=== PATIENT | male | born 1960 | race Caucasian/White ===

== ENCOUNTER → 2020-07-16 | Outpatient (CLI) | payer OTHER ==
[~2020-07-16] MED LIST: AMLO5TAB4 PO; CHOL10003 PO
[2020-07-16 16:24] LABS: BASOPHILS % (AUTO) 1 % (0-1); EOSINOPHILS % (AUTO) 1 % (1-7); LYMPHOCYTES % (AUTO) 28 % (22-44); MEAN CORPUSCULAR HEMOGLOBIN 31.8 pg (27.5-34.5); MEAN CORPUSCULAR HGB CONC 34.3 g/dL (33.2-36.2); MEAN PLATELET VOLUME 8.5 fL (7.4-10.4); MONOCYTES % (AUTO) 7 % (2-9); NEUTROPHILS % (AUTO) 63 % (42-75); PLATELET COUNT 321 x10^3/uL (130-400); RED BLOOD COUNT 4.54 x10^6/uL (4.38-5.82); RED CELL DISTRIBUTION WIDTH 12.9 % (9.4-14.8)
[2020-07-16 16:26] LABS: MD NO
[2020-07-16 16:27] LABS: INTERNATIONAL NORMALIZED RATIO 0.94 (0.93-1.1); PROTHROMBIN TIME 10.1 Seconds (9.6-11.5)
[2020-07-16 16:29] LABS: ANION GAP 4 mmol/L (5-15); CALCIUM 9.3 mg/dL (8.5-10.1); CHLORIDE 106 mmol/L (98-107); CREATININE 1.07 mg/dL (0.7-1.3)
== END | disposition home or self-care (01) ==
LOC: STAR 14:59
PROVIDERS: ATTEND Neurological Surgery
DX: Z01.818 Encounter for other preprocedural examination (principal); M48.061 Spinal stenosis, lumbar region without neurogenic claudication; Z20.822 Contact with and (suspected) exposure to COVID-19
CPT/HCPCS: 36415; 71046; 80048; 85025; 85610; 85730; 93005; U0003; U0005

== ENCOUNTER 2020-07-21 06:53 | Inpatient (IN) | payer OTHER ==
[~2020-07-21] VITALS: Ht 162.6 cm; Wt 65.2 kg
[~2020-07-21 06:53] MED LIST changes: +BACITRACIN 50,000 UNIT ONE; +BUPIVACAINE/PF 0.25% ONE; +EPINEPHRINE 1 MG/ML, 1ML ONE; +VANCOMYCIN 1,000 MG ONE; +methylPREDNISolone SOD SUCC 125 MG/2 ML ONE
[2020-07-21] MEDS ORDERED: MIDAZOLAM 1 MG/ML, 2ML ONE (07:49)
[2020-07-21] MEDS ORDERED: FENTANYL PF 250 MCG/5ML ONE (07:49)
[2020-07-21 08:22] VITALS: BP 119/73
[2020-07-21] MEDS ORDERED: LACTATED RINGERS 1,000 ML IV SCH (08:30)
[2020-07-21] MEDS ORDERED: CHLORHEXIDINE 15 ML UDC PO ONE (08:30)
[2020-07-21] MEDS ORDERED: PROPOFOL 10 MG/ML, 20ML ONE (09:16)
[2020-07-21] MEDS ORDERED: SUCCINYLCHOLINE 20 MG/ML, 10ML ONE (09:16)
[2020-07-21] MEDS ORDERED: CEFAZOLIN 1,000 MG ONE (09:16)
[2020-07-21] MEDS ORDERED: ONDANSETRON 2MG/ML, 2ML ONE (09:16)
[2020-07-21] MEDS ORDERED: DEXAMETHASONE 4 MG/ML, 1ML ONE (09:16)
[2020-07-21] MEDS ORDERED: ROCURONIUM 10 MG/ML,10ML ONE (09:16)
[2020-07-21] MEDS ORDERED: hydrALAzine 20 MG/ML, 1ML IV PRN (10:30)
[2020-07-21] MEDS ORDERED: PROMETHAZINE 25 MG/ML, 1ML IV PRN (10:30)
[2020-07-21] MEDS ORDERED: ONDANSETRON 2MG/ML, 2ML IVPush PRN (10:30)
[2020-07-21] MEDS ORDERED: ALBUTEROL SULFATE 2.5 MG/3 ML NPPB PRN (10:30)
[2020-07-21] MEDS ORDERED: HYDROmorphone 1 MG/ML, 1ML INJ IV PRN (10:30)
[2020-07-21] MEDS ORDERED: KETOROLAC 30 MG/1 ML IV PRN (10:30)
[2020-07-21] MEDS ORDERED: OXYcodone 5 MG/5 ML ORAL.SOL UDC PO PRN (10:30)
[2020-07-21] MEDS ORDERED: LABETALOL 5MG/ML, 20ML IV PRN (10:30)
[2020-07-21] MEDS ORDERED: MEPERIDINE/PF 25MG/0.5ML IVPush PRN (10:30)
[2020-07-21] MEDS ORDERED: DIAZEPAM 5 MG/ML, 2ML IV PRN ×2 (10:30)
[2020-07-21] MEDS ORDERED: METOCLOPRAMIDE 5 MG/ML, 2ML IV PRN (10:30)
[2020-07-21] MEDS ORDERED: FENTANYL PF 100 MCG/2ML ONE (10:45)
[2020-07-21] MEDS ORDERED: OXYcodone 5 MG/5 ML ORAL.SOL UDC ONE (10:46)
[2020-07-21] MEDS: FENTANYL PF 100 MCG/2ML IV PRN ×2 (10:52→10:57)
[2020-07-21] MEDS ORDERED: OXYcodone IR 5MG TABLET PO PRN (12:00)
[2020-07-21] MEDS ORDERED: DIPHENHYDRAMINE 50 MG/ML, 1ML IVPush PRN (12:30)
[2020-07-21] MEDS ORDERED: MAGNESIUM HYDROXIDE 8%, 30ML UDC PO PRN (12:30)
[2020-07-21] MEDS ORDERED: BISACODYL 10 MG SUPP PR PRN (12:30)
[2020-07-21] MEDS ORDERED: DIPHENHYDRAMINE 25 MG CAPSULE PO PRN (12:30)
[2020-07-21] MEDS ORDERED: morphine SULFATE 10 MG/ML, 1ML IV PRN (12:30)
[2020-07-21] MEDS ORDERED: HYDROcodone/APAP 10/325 MG TABLET PO PRN (12:30)
[2020-07-21] MEDS ORDERED: PROMETHAZINE 25 MG/ML, 1ML IM PRN (12:30)
[2020-07-21] MEDS ORDERED: ONDANSETRON 2MG/ML, 2ML IV PRN (12:30)
[2020-07-21] MEDS: NS + 20MEQ KCL 1,000 ML IV SCH ×2 (12:52→22:19)
[2020-07-21] MEDS: TIZANIDINE 4MG TABLET PO SCH ×2 (12:55→20:07)
[2020-07-21] MEDS ORDERED: CEFAZOLIN PMX 1GM/50ML 50 ML IVPB SCH (13:00)
[2020-07-21] MEDS: CHOLECALCIFEROL 1,000 UNIT TABLET PO SCH (13:13)
[2020-07-21 13:15] VITALS: BP 114/69
[2020-07-21] MEDS: CEFAZOLIN PMX 1GM/50ML 50 ML IVPB SCH (16:55)
[2020-07-21] MEDS: OXYcodone IR 5MG TABLET PO PRN ×2 (17:02→20:08)
[2020-07-21 18:45] VITALS: BP 104/64
[2020-07-21 23:24] VITALS: BP 123/64
[2020-07-22] MEDS: OXYcodone IR 5MG TABLET PO PRN ×2 (00:08→10:42)
[2020-07-22] MEDS: CEFAZOLIN PMX 1GM/50ML 50 ML IVPB SCH (00:35)
[2020-07-22 03:39] VITALS: BP 101/60
[2020-07-22] MEDS: TIZANIDINE 4MG TABLET PO SCH (05:52)
[2020-07-22 07:05] VITALS: BP 98/61
[2020-07-22] MEDS ORDERED: AMLODIPINE 5 MG TABLET PO SCH (09:00)
[2020-07-22] MEDS: NS + 20MEQ KCL 1,000 ML IV SCH (09:00)
[2020-07-22] MEDS ORDERED: SENNA/DOCUSATE TABLET PO SCH (09:00)
[2020-07-22] MEDS: CHOLECALCIFEROL 1,000 UNIT TABLET PO SCH (10:02)
== END 2020-07-22 12:57 | disposition home or self-care (01) | DRG 517 ==
LOC: OUT 06:53 → 4NE 11:21 → OUT 11:27 → 4NE 11:27 → DCLOUNGE 07-22 12:45
PROVIDERS: ADMIT Neurological Surgery; ATTEND Neurological Surgery
PROC: 01NR0ZZ Release Sacral Nerve, Open Approach (ICD-10-PCS; 2020-07-21)
PROC: 01NB0ZZ Release Lumbar Nerve, Open Approach (ICD-10-PCS; principal; 2020-07-21 09:30)
DX: M48.062 Spinal stenosis, lumbar region with neurogenic claudication (principal); M54.16 Radiculopathy, lumbar region; Z72.89 Other problems related to lifestyle
CPT/HCPCS: 72100; G0378; J0171; J0690; J1100; J2250; J2405; J2550; J2704; J3010; J3370; J3480; J0330; J2270; J2930; J7120